=== PATIENT | female | born 1995 | race Caucasian/White ===

== ENCOUNTER → 2019-09-08 09:50 | Observation (INO) | END | disposition home or self-care (01) | LOC: 1NENULAB | PROVIDERS: ADMIT Obstetrics & Gynecology; ATTEND Obstetrics & Gynecology ==

== ENCOUNTER 2019-09-26 07:30 | Inpatient (IN) ==
[2019-09-26] MEDS ORDERED: Famotidine 20 MG/2 ML VIAL IVP PRN (08:18)
[2019-09-26] MEDS ORDERED: Naloxone 0.4 MG/ML INJ IVP PRN (08:18)
[2019-09-26] MEDS ORDERED: Ondansetron 4 MG/2 ML VIAL IVP PRN (08:18)
[2019-09-26] MEDS ORDERED: Metoclopramide 10 MG/2 ML VIAL IVP PRN (08:18)
[2019-09-26] MEDS ORDERED: Lidocaine 1% 20 ML MDV INFILT PRN (08:18)
[2019-09-26] MEDS ORDERED: *HR* FentaNYL (PF) 100 MCG/2 ML VIAL IVP PRN (08:18)
[2019-09-26] MEDS ORDERED: Oxytocin 20 units/ LR 1000 mL 20 UNIT/1,000 ML BAG IVC SCH (08:30)
[2019-09-26] MEDS ORDERED: Ringers Solution, Lactated 1,000 ML IVC SCH (08:30)
[2019-09-26] MEDS ORDERED: miSOPROStoL 25 MCG TABLET PO PRN (09:08)
[2019-09-26 09:24] LABS: Basophils % 0.2 %; Eosinophils # 0.1 K/mcL (0.0-0.6); Eosinophils % 0.8 %; Hematocrit 35.4 % (35.3-44.9); Hemoglobin 11.6 g/dL (11.5-15.4); Immature Granulocytes % 1.1 % (0-4); Lymphocytes # 1.5 K/mcL (0.6-4.6); Lymphocytes % 13.4 %; Mean Corpuscular HGB Conc 32.8 g/dL (31.6-35.5); Mean Corpuscular Hemoglobin 28.2 pg (28.0-33.3); Mean Corpuscular Volume 86.1 fL (83.0-100.0); Mean Platelet Volume 12.5 fL (9.4-12.4); Monocytes # 1.2 K/mcL (0.0-1.3); Monocytes % 10.7 %; Neutrophils # 8.1 K/mcL (1.6-8.9); Platelet Count 135 K/mcL (140-400); Red Blood Count 4.11 M/mcL (3.82-4.97); Red Cell Distribution Width 13.5 % (11.5-14.5); Segmented Neutrophils % 73.8 %; White Blood Count 10.9 K/mcL (4.3-11.1)
[2019-09-26 10:35] LABS: Amphetamine Screen,Urine Negative ng/mL (Cutoff=1000); Barbiturate Screen,Urine Negative ng/mL (Cutoff=200); Benzodiazepines Screen,Urine Negative ng/mL (Cutoff=200); Cannabinoid Screen,Urine Negative ng/mL (Cutoff = 50); Cocaine Screen,Urine Negative ng/mL (Cutoff= 300); Opiate Screen,Urine Negative ng/mL (Cutoff=300); Phencyclidine Screen,Urine Negative ng/mL (Cutoff=25)
[2019-09-26] MEDS ORDERED: *HR* FentaNYL (PF) 100 MCG/2 ML VIAL EP ONE (11:52)
[2019-09-26] MEDS ORDERED: EPHEDrine 50 MG/ML VIAL IVP PRN (11:52)
[2019-09-26] MEDS ORDERED: Bupivacaine-MPF 0.25% 10 ML VIAL EP ONE (11:52)
[2019-09-26] MEDS ORDERED: miSOPROStoL 25 MCG TABLET VG PRN (13:09)
[2019-09-26] MEDS ORDERED: *HR* FentaNYL (PF) 100 MCG/2 ML VIAL ONE (13:36)
[2019-09-26] MEDS ORDERED: Bupivacaine-MPF 0.25% 10 ML VIAL ONE (13:36)
[2019-09-26] MEDS: Epidural Premix (fent/bupiv) 110 ML EP SCH ×2 (16:21→23:43)
[2019-09-27] MEDS ORDERED: *HR* FentaNYL (PF) 100 MCG/2 ML VIAL ONE (01:26)
[2019-09-27] MEDS ORDERED: Ropivacaine/PF 0.2% 20 ML VIAL ONE (01:26)
[2019-09-27] MEDS ORDERED: Oxytocin 20 units/ LR 1000 mL 20 UNIT/1,000 ML BAG IVC SCH (05:17)
[2019-09-27] MEDS ORDERED: Benzocaine/Menthol 56 GM AEROSOL SPRAY TP PRN (05:17)
[2019-09-27] MEDS ORDERED: Lanolin 7 G OINT...G. TP PRN (05:17)
[2019-09-27] MEDS ORDERED: Measles/Mumps/Rubella Vacc 0.5 ML VIAL SQ PRN (05:17)
[2019-09-27] MEDS: Acetaminophen 325 MG TABLET PO PRN ×2 (05:31→21:30)
[2019-09-27] MEDS: Prenatal Vit/FA 1 EACH TABLET PO SCH (08:48)
[2019-09-27] MEDS: Ibuprofen 600 MG TABLET PO PRN (12:00)
[2019-09-28] MEDS: Ibuprofen 600 MG TABLET PO PRN ×2 (05:47→14:24)
[2019-09-28 07:41] VITALS: BP 92/57
[2019-09-28] MEDS: Prenatal Vit/FA 1 EACH TABLET PO SCH (09:02)
== END 2019-09-28 15:17 | disposition home or self-care (01) | DRG 560 ==
LOC: 1NENULAB 07:50 → 1NENUOBS 09-27 06:37
PROVIDERS: ADMIT Obstetrics & Gynecology; ATTEND Obstetrics & Gynecology